=== PATIENT | female | born 1990 | race Caucasian/White ===

== ENCOUNTER → 2016-11-30 | Outpatient (CLI) | payer OTHER ==
[2016-11-30 16:47] LABS: AUTOMATED NEUTROPHIL # 8.7 TH/MM3 (1.8-7.7); BASOPHIL % 0.2 % (0.0-2.0); EOSINOPHIL # 0.2 TH/MM3 (0-0.4); EOSINOPHIL % 1.2 % (0.0-4.0); HEMATOCRIT 34.3 % (35.0-46.0); HEMO FLAGS DIFF FINAL; LYMPH % 21.6 % (9.0-44.0); LYMPHOCYTE # 2.6 TH/MM3 (1.0-4.8); MEAN CELL VOLUME 89.5 FL (80.0-100.0); MEAN CORPUSCULAR HEMOGLOBIN 29.7 PG (27.0-34.0); MEAN CORPUSCULAR HGB CONC 33.1 % (32.0-36.0); MONO % 6.3 % (0.0-8.0); NEUT % 70.7 % (16.0-70.0); PLATELET COUNT 227 TH/MM3 (150-450); RED BLOOD COUNT 3.84 MIL/MM3 (4.00-5.30); RED CELL DISTRIBUTION WIDTH 13.7 % (11.6-17.2); WHITE BLOOD COUNT 12.2 TH/MM3 (4.0-11.0)
[2016-11-30 17:21] LABS: RUBELLA IGG ANTIBODY 44.4 IU/mL (10.0-500.0); RUBELLA STATUS IMMUNE (IMMUNE)
[2016-12-01 10:20] LABS: RAPID PLASMA REAGIN SCREEN NON-REACTIVE (NON-REACTVE)
[2016-12-04 15:11] LABS: CALCULATED AGE AT EDD 26 years (()); GA USED IN RISK ESTIMATE Scan estimate (()); MATERNAL RACE BLACK non-Black (()); MATERNAL WEIGHT (LBS) 128 lbs (())
== END ==
LOC: CLAB 16:05
PROVIDERS: ATTEND Obstetrics & Gynecology
DX: Z34.82 Encounter for supervision of other normal pregnancy, second trimester (principal); Z11.3 Encounter for screening for infections with a predominantly sexual mode of transmission
CPT/HCPCS: 36415; 81511; 85025; 86592; 86703; 86762; 86850; 86900; 86901; 87086; 87340; 87798

== ENCOUNTER → 2017-01-29 | Outpatient (CLI) | payer OTHER | LOC: HPND 08:31 | PROVIDERS: ATTEND Obstetrics & Gynecology | DX: O35.8XX2 Maternal care for other (suspected) fetal abnormality and damage, fetus 2 (principal); O30.042 Twin pregnancy, dichorionic/diamniotic, second trimester; O35.1XX2 Maternal care for (suspected) chromosomal abnormality in fetus, fetus 2; Z3A.25 25 weeks gestation of pregnancy | CPT/HCPCS: 76816 ==

== ENCOUNTER → 2017-02-22 | Outpatient (CLI) | payer OTHER ==
[2017-02-22 09:22] LABS: AUTOMATED NEUTROPHIL # 6.9 TH/MM3 (1.8-7.7); BASOPHIL % 0.1 % (0.0-2.0); EOSINOPHIL # 0.2 TH/MM3 (0-0.4); EOSINOPHIL % 1.7 % (0.0-4.0); HEMATOCRIT 32.8 % (35.0-46.0); HEMO FLAGS DIFF FINAL; LYMPH % 21.4 % (9.0-44.0); LYMPHOCYTE # 2.2 TH/MM3 (1.0-4.8); MEAN CELL VOLUME 87.6 FL (80.0-100.0); MEAN CORPUSCULAR HEMOGLOBIN 29.6 PG (27.0-34.0); MEAN CORPUSCULAR HGB CONC 33.8 % (32.0-36.0); MONO % 10.8 % (0.0-8.0); PLATELET COUNT 249 TH/MM3 (150-450); RED BLOOD COUNT 3.74 MIL/MM3 (4.00-5.30); RED CELL DISTRIBUTION WIDTH 12.8 % (11.6-17.2); WHITE BLOOD COUNT 10.5 TH/MM3 (4.0-11.0)
== END ==
LOC: CLAB 08:30
DX: O35.0XX2 Maternal care for (suspected) central nervous system malformation in fetus, fetus 2 (principal); O09.90 Supervision of high risk pregnancy, unspecified, unspecified trimester; O30.042 Twin pregnancy, dichorionic/diamniotic, second trimester; B96.89 Other specified bacterial agents as the cause of diseases classified elsewhere
CPT/HCPCS: 36415; 82951; 85025; 86592; 86850; 86900; 86901; 87086; 87340

== ENCOUNTER 2017-03-29 15:55 | Emergency (ER) | payer OTHER ==
[~2017-03-29] VITALS: Ht 157.5 cm; Wt 72.6 kg
--- NOTE | 2017-03-29 17:15 | PD ---
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 Weeks Gestation: 34 Para: 0 : 1 History Past Medical History Medical History: Denies Significant Hx Past Surgical History Surgical History: No Previous Surgery Family History Family History: Negative Social History Alcohol Use: No Tobacco Use: No Substance Abuse: No Allergies-Medications (Allergen,Severity, Reaction): Coded Allergies: No Known Allergies (Unverified , 03/29/17) Review of Systems Except as stated in HPI: all other systems reviewed are Neg Physical Exam Narrative GENERAL: Well-nourished, well-developed patient. CARDIOVASCULAR: Regular rate and rhythm without murmurs, gallops, or rubs. RESPIRATORY: Breath sounds equal bilaterally. No accessory muscle use. BREASTS: Bilateral exam showed no masses , no retractions, no nipple discharge. ABDOMEN/GI: Abdomen soft, non-tender, bowel sounds present, no rebound, no guarding Gravid to [-] weeks size Fundal Height: 38 GENITOURINARY: External Genitalia: intact and normal in appearance BUS glands: [-] Cervix: deferred Dilatation: [-] Effacement: [-] Station: [-] Presentation: [-] Membranes: [intact or ruptured] Uterine Contractions: [-] FHT's: Category: [-] Baseline: [-] Reactive:absent Variability: poor Decels: no EXTREMITIES: No cyanosis or edema. BACK: Nontender without obvious deformity. No CVA tenderness. NEUROLOGICAL: Awake and alert. Motor and sensory grossly within normal limits. Five out of 5 muscle strength in all muscle groups. Normal speech. Data Data Vital Signs Reviewed: Yes Orders Orders Attending Discharge Order (03/29/17 ) Vital Signs (Adult) .ON ADMISSION (03/29/17 16:51) ^ Labor Status (03/29/17 16:51) ^ Non Stress Test (03/29/17 16:51) ^ Hydration (03/29/17 16:51) MDM Medical Record Reviewed: Yes Plan DC from hospital to drive personal vehicle to [facility] Critical Care Time (mins): 10 Diagnosis Diagnosis: Primary Impression: NST (non-stress test) nonreactive Additional Impressions: 34 weeks gestation of Dichorionic diamniotic twin in third trimester Disposition: 01 DISCHARGE HOME Condition: Good Patient Instructions: General Instructions Departure Forms: Tests/Procedures Antwon Zambrano MD Mar 29, 2017 17:15
== END 2017-03-29 17:04 | disposition home or self-care (01) ==
LOC: HOBED 15:55
DX: O36.8932 Maternal care for other specified fetal problems, third trimester, fetus 2 (principal); O30.043 Twin pregnancy, dichorionic/diamniotic, third trimester; Z3A.34 34 weeks gestation of pregnancy
CPT/HCPCS: 59025

== ENCOUNTER 2017-07-21 13:51 | Emergency (ER) | payer OTHER ==
[~2017-07-21] VITALS: Ht 157.5 cm; Wt 58.0 kg
[2017-07-21 13:53] VITALS: BP 112/84; PULSE 67; RESP 18; TEMP 98.3; O2SAT 99
--- NOTE | 2017-07-21 17:05 | PD ---
HPI Chief Complaint: Exposure to Blood/Body Fluids Time Seen by Provider: 14:30 Travel History International Travel<30 days: No Contact w/Intl Traveler<30days: No Traveled to known affect area: No History of Present Illness HPI Is a 27-year-old woman who presents emerged prior for evaluation following a needlestick. She is a nurse in the [employer]. She was giving shot of insulin which she stuck herself in the finger. Was an insulin needle. She came immediately over. Patient has no known HIV. Difficult to get a history from as he is [place]ian-speaking and schizophrenic. Blood is in the lab and can be tested. Up- to-date on her other shots. History Past Medical History Medical History: Denies Significant Hx Tetanus Vaccination: Unknown LMP: 07/2016 : 2 Para: 1 Social History Alcohol Use: Yes (occasionally) Tobacco Use: No Allergies-Medications (Allergen,Severity, Reaction): Coded Allergies: No Known Allergies (Unverified Adverse Reaction, Unknown, 07/21/17) Reported Meds & Prescriptions Reported Meds & Active Scripts Active No Active Prescriptions or Reported Medications Review of Systems Except as stated in HPI: all other systems reviewed are Neg Physical Exam Narrative GENERAL: 27-year-old woman, no acute distress. SKIN: Warm and dry. CARDIOVASCULAR: Warm and well perfused. RESPIRATORY: Normal rate and effort. MUSCULOSKELETAL: No deformities. NEUROLOGICAL: Awake and alert. No gross deficits. Data Data Last Documented VS Vital Signs Date Time Temp Pulse Resp B/P (MAP) Pulse Ox O2 Delivery O2 Flow Rate FiO2 07/21/17 13:53 98.3 67 18 112/84 (93) 99 MDM Medical Decision Making Medical Screen Exam Complete: Yes Emergency Medical Condition: Yes Differential Diagnosis Needlestick exposure Narrative Course Medical decision making 27-year-old low risk needlestick exposure. She is breast-feeding. Recommend against PEP unless s source patient returns positive for HIV. Otherwise no change. Patient was allowed to return to work. Source patient labs are still pending. 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 She will return to the ED if positive to start PEP. Diagnosis Primary Impression: Needlestick wound of finger Med/Other Pt SpecificInfo: No Change to Meds Scripts No Active Prescriptions or Reported Meds Disposition: 01 DISCHARGE HOME Condition: Stable Giacomo Luna MD Jul 21, 2017 17:05
--- NOTE | 2017-07-21 18:44 | PD ---
Physical Exam Narrative Patient was seen by ED physician and signed out to me. Data Data Last Documented VS Vital Signs Date Time Temp Pulse Resp B/P (MAP) Pulse Ox O2 Delivery O2 Flow Rate FiO2 07/21/17 13:53 98.3 67 18 112/84 (93) 99 Orders Orders Ed Discharge Order (07/21/17 18:41) MDM Supervised Visit with ELLEN: No Narrative Course Source patient HIV test negative. Diagnosis Primary Impression: Needlestick wound of finger Qualified Codes: S61.239A - Puncture wound without foreign body of unspecified finger without damage to nail, initial encounter; W27.3XXA - Contact with needle (sewing), initial encounter Patient Instructions: General Instructions Additional Instruction: Follow-up with [employer]. Med/Other Pt SpecificInfo: No Change to Meds Scripts No Active Prescriptions or Reported Meds Disposition: 01 DISCHARGE HOME Condition: Stable Monroe Rowe MD Jul 21, 2017 18:44
== END 2017-07-21 18:53 | disposition home or self-care (01) ==
LOC: NEPD 13:51
DX: S61.239A Puncture wound without foreign body of unspecified finger without damage to nail, initial encounter (principal); W46.1XXA Contact with contaminated hypodermic needle, initial encounter; Y93.F9 Activity, other caregiving; Y92.238 Other place in hospital as the place of occurrence of the external cause; Y99.0 Civilian activity done for income or pay; Z77.21 Contact with and (suspected) exposure to potentially hazardous body fluids
CPT/HCPCS: 99283